=== PATIENT | female | born 1945 | race Caucasian/White ===

== ENCOUNTER 2023-09-29 09:21 | Day surgery (SDC) | payer MEDICARE, OTHER ==
[2023-09-29] MEDS ORDERED: Lactated Ringers 1,000 ML IV ONE (09:38)
[2023-09-29] MEDS: Lactated Ringers 1,000 ML IV SCH (09:41)
[2023-09-29 09:46] VITALS: RESP 18
[2023-09-29] MEDS ORDERED: DIPRIVAN 200 MG/20 ML IV ONE (12:17)
[2023-09-29 13:07] VITALS: TEMP 97.9
[2023-09-29 13:20] VITALS: BP 140/56; PULSE 72; O2SAT 96
--- NOTE | 2023-09-29 13:44 | OP ---
SURGERY DATE/TIME: 09/29/2023 1211 PREOPERATIVE DIAGNOSES: 1) Abdominal pain. 2) Change in bowels. POSTOPERATIVE DIAGNOSES: 1) Mild gastritis. 2) Extensive diverticulosis sigmoid colon. PROCEDURES: 1) EGD with biopsy. 2) Colonoscopy. SURGEON: Wicho Fuchs M.D. ANESTHESIA: IV anesthesia. CONDITION: Patient condition stable. COMPLICATIONS: None. SPECIMEN: Antrum biopsy for Helicobacter pylori. HISTORY: The patient is a 78-year-old female that reports some abdominal pain, change in bowel habits. It has been a number of years since the last colonoscopy. Discussed with the patient and she elected to proceed with endoscopy. FINDINGS: 1) Mild erythematous gastritis biopsied. 2) Colon with extensive sigmoid diverticulosis maybe minimal narrowing. DESCRIPTION OF PROCEDURE: The patient brought to the endoscopy suite, routinely positioned and prepared. Timeout performed. IV anesthesia introduced by anesthesia. Video gastroscope was inserted through the mouth advanced to the third portion of the duodenum. The duodenum is normal in appearance. The stomach has mild erythematous gastritis. Biopsies taken for Helicobacter pylori. Retroflexion normal. Esophagus normal. The stomach is suctioned out. Scope withdrawn. Digital rectal exam is normal. The colonoscope is inserted and advanced to the cecum confirmed by the ileocecal valve and appendiceal orifice. Preparation is [place] fair, smaller sessile polyps could be missed. Withdrawal greater than six minutes and the patient tolerated that well. There were no lesions identified. There is extensive sigmoid diverticulosis limited to the sigmoid colon. It just maybe slightly narrowed but no discrete stricture visualized. Retroflexion in the rectum is normal. The patient tolerated the procedure well. RECOMMENDATIONS: We should see her back in the office. There was an ultrasound pending. Perhaps her symptoms are more gallbladder related and should follow up for pathology results. We will start her on Protonix 20 once daily though I do not think the gastritis is really causing the symptoms.
== END 2023-09-29 13:35 | disposition home or self-care (01) ==
LOC: SDC 09:21
PROVIDERS: ATTEND Surgery
DX: K29.70 Gastritis, unspecified, without bleeding (principal); R19.4 Change in bowel habit; R10.9 Unspecified abdominal pain; K57.30 Diverticulosis of large intestine without perforation or abscess without bleeding
CPT/HCPCS: 99100; J2704